=== PATIENT | female | born 1990 | race Caucasian/White ===

== ENCOUNTER 2017-05-06 20:27 | Emergency (ER) | payer OTHER ==
[2017-05-06 20:29] VITALS: BP 173/103; PULSE 114; RESP 16; TEMP 99.8; O2SAT 100
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
--- NOTE | 2017-05-06 22:22 | RADRPT ---
EXAM DATE/TIME: 05/06/2017 21:36 [facility] COMPARISON: No previous studies available for comparison. INDICATIONS : Pain post fall. MEDICAL HISTORY : None. SURGICAL HISTORY : None. ENCOUNTER: Initial ACUITY: 1 day PAIN SCORE: 5/10 LOCATION: Bilateral chest FINDINGS: PA and lateral views of the chest demonstrate the lungs to be symmetrically aerated without evidence of mass, infiltrate or effusion. The cardiomediastinal contours are unremarkable. Osseous structure s are intact. CONCLUSION: No acute cardiopulmonary process. Dominick Strong MD on May 06, 2017 at 22:20 Board Certified Radiologist. This report was verified electronically.
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
--- NOTE | 2017-05-06 22:26 | RADRPT ---
EXAM DATE/TIME: 05/06/2017 21:41 [facility] COMPARISON: No previous studies available for comparison. INDICATIONS : Pain post fall. MEDICAL HISTORY : None. SURGICAL HISTORY : Lumbar spine fusion. ENCOUNTER: Initial ACUITY: 1 day PAIN SCORE: 5/10 LOCATION: pelvis. FINDINGS: A single frontal view of the pelvis demonstrates no evidence of fracture. The bony pelvic ring is in tact. Bony mineralization is normal. The soft tissues are intact. Transpedicular posterior fixation at the lumbosacral junction. CONCLUSION: 1. Transpedicular posterior fixation of the lumbosacral junction. Hardware appears to be intact. 2. No acute fracture. Dominick Strong MD on May 06, 2017 at 22:23 Board Certified Radiologist. This report was verified electronically.
[2017-05-06 22:39] LABS: AUTOMATED NEUTROPHIL # 7.5 TH/MM3 (1.8-7.7); BASOPHIL # 0.1 TH/MM3 (0-0.2); BASOPHIL % 0.5 % (0.0-2.0); EOSINOPHIL % 0.4 % (0.0-4.0); HEMATOCRIT 39.7 % (35.0-46.0); HEMO FLAGS DIFF FINAL; LYMPH % 18.6 % (9.0-44.0); LYMPHOCYTE # 1.9 TH/MM3 (1.0-4.8); MEAN CELL VOLUME 95.1 FL (80.0-100.0); MEAN CORPUSCULAR HEMOGLOBIN 32.2 PG (27.0-34.0); MEAN CORPUSCULAR HGB CONC 33.9 % (32.0-36.0); MONO % 7.9 % (0.0-8.0); NEUT % 72.6 % (16.0-70.0); PLATELET COUNT 254 TH/MM3 (150-450); RED BLOOD COUNT 4.17 MIL/MM3 (4.00-5.30); RED CELL DISTRIBUTION WIDTH 12.5 % (11.6-17.2); WHITE BLOOD COUNT 10.3 TH/MM3 (4.0-11.0)
[2017-05-06 22:40] LABS: BACTERIA, URINE MANY /hpf; BLOOD, URINE MOD (NEG); COMMENT (UR) CULTURE INDICATED; CULTURE IF INDICATED CULTURE INDICATED; GLUCOSE,URINE NEG (NEG); KETONE, URINE TRACE mg/dL (NEG); MUCUS URINE MANY /lpf (OCC); NITRITE,URINE NEG (NEG); PH, URINE 6.5 (5.0-8.5); SQUAMOUS EPITHELIAL CELL URINE 10 /hpf (0-5); URINE COLOR YELLOW (YELLW/STRAW)
[2017-05-06 22:49] LABS: INTERNATIONAL NORMALIZED RATIO 0.9 RATIO; PROTHROMBIN TIME - PATIENT 9.4 SEC (9.8-11.6)
[2017-05-06 22:52] LABS: APTT (PATIENT) 23.7 SEC (24.3-30.1)
[2017-05-06 22:53] LABS: BICARBONATE 27.1 MEQ/L (21.0-32.0); POTASSIUM 3.8 MEQ/L (3.5-5.1)
[2017-05-06] MEDS ORDERED: ORTH1TAB PO (23:18)
[2017-05-06] MEDS ORDERED: oxyCODONE/ACETAMINOPHEN 5 MG/325 MG TAB PO ONE (23:30)
[2017-05-06] MEDS ORDERED: TETANUS/DIPHTHERIA TOXOID ADULT 0.5 ML VIAL IM ONE (23:30)
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
[2017-05-07 00:47] VITALS: RESP 18
[2017-05-07] MEDS ORDERED: BACITRACIN TOP OINT 15 GM TUBE TOPICAL ONE (02:30)
[2017-05-07] MEDS ORDERED: CLIN300C5 PO (02:45)
[2017-05-07] MEDS ORDERED: IBUP-232 PO (02:45)
[2017-05-07] MEDS ORDERED: NORC5TAB PO (02:45)
[2017-05-07] MEDS ORDERED: oxyCODONE/ACETAMINOPHEN 5 MG/325 MG TAB PO ONE (03:00)
[2017-05-07] MEDS ORDERED: IBUPROFEN 600 MG TAB PO ONE (03:00)
== END 2017-05-07 03:36 | disposition home or self-care (01) ==
LOC: NEPC 20:27
DX: S30.810A Abrasion of lower back and pelvis, initial encounter (principal); S50.312A Abrasion of left elbow, initial encounter; S50.311A Abrasion of right elbow, initial encounter; S80.211A Abrasion, right knee, initial encounter; S80.212A Abrasion, left knee, initial encounter; M79.1 Myalgia; I10 Essential (primary) hypertension; W18.00XA Striking against unspecified object with subsequent fall, initial encounter; Z23 Encounter for immunization
CPT/HCPCS: 70450; 71020; 72125; 72170; 73130; 80048; 81001; 84703; 85025; 85610; 85730; 87086; 90471; 90714

== ENCOUNTER 2017-05-12 11:59 | Emergency (ER) | payer OTHER ==
[~2017-05-12] VITALS: Ht 152.4 cm; Wt 64.1 kg
[~2017-05-12 11:59] MED LIST: CLIN300C5 PO; IBUP-232 PO; NORC5TAB PO; ORTH1TAB PO
[2017-05-12 12:09] VITALS: BP 140/61; PULSE 81; RESP 18; TEMP 97.9; O2SAT 100
[2017-05-12] MEDS ORDERED: KETOROLAC TROMETHAMINE 60 MG/2 ML (IM) VIAL IM ONE (12:45)
[2017-05-12] MEDS ORDERED: CLIN300C5 PO (12:49)
[2017-05-12] MEDS ORDERED: MUPI2%T TOPICAL (12:49)
[2017-05-12] MEDS ORDERED: IBUP1TAB7 PO (12:50)
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
== END 2017-05-12 13:18 | disposition home or self-care (01) ==
LOC: PHEFT 11:59
DX: S30.810D Abrasion of lower back and pelvis, subsequent encounter (principal); S80.212D Abrasion, left knee, subsequent encounter; V89.2XXD Person injured in unspecified motor-vehicle accident, traffic, subsequent encounter
CPT/HCPCS: 96372; 99282; J1885